=== PATIENT | male | born 1955 | race Caucasian/White ===

== ENCOUNTER 2020-10-08 05:40 | Inpatient (IN) ==
[2020-10-01 11:11] LABS: Basophils # 0.1 10*3/uL (0.0-0.2); Basophils % 0.7 % (0.0-0.8); Eosinophils # 0.3 10*3/uL (0.0-0.87); Eosinophils % 3.3 % (0.00-10.9); Hematocrit 38.1 VOL% (42.0-52.0); Hemoglobin 12.6 GM/DL (14.0-18.0); Immature Granulocytes % 0.3 %; Immature Granulocytes Absolute 0.03 #; Lymphocytes # 1.6 10*3/uL (1.4-4.0); Lymphocytes % 18.6 % (21.2-54.2); Mean Corpuscular HGB Conc 33.1 GM/DL (32-36); Mean Corpuscular Volume 93.2 FL (87-102); Mean Platelet Volume 10.1 FL (9.6-12.0); Monocytes % 7.3 % (1.7-12.7); Neutrophils % 69.8 % (38.7-73.9); Platelet Count 174 T/CUMM (130-400); Red Blood Count 4.09 MC/CUMM (3.8-5.5); Red Cell Distribution Width 12.7 % (9.3-17.3); White Blood Count 8.8 T/CUMM (4-12)
[2020-10-01 11:58] LABS: Albumin 4.1 G/DL (3.4-5.0); Bilirubin,Total 1.4 MG/DL (0.2-1.0); Calcium 8.9 MG/DL (8.5-10.1); Osmolality,Calculated 293.2 MOS/KG (273-304); Potassium 5.8 MMOL/L (3.5-5.1); Total Protein 6.7 G/DL (6.4-8.2)
[2020-10-08] MEDS ORDERED: GENTAMICIN INJ 160 MG in SODIUM CHLORIDE 0.9% 100 ML IV ONE (06:30)
[2020-10-08] MEDS ORDERED: GENTAMICIN 80 MG/2 ML VIAL ONE (06:53)
[2020-10-08] MEDS ORDERED: LACTATED RINGERS 1,000 ML IV SCH (07:00)
[2020-10-08] MEDS ORDERED: FAMOTIDINE 20 MG TABLET PO ONE (07:21)
[2020-10-08] MEDS ORDERED: DIAZEPAM 5 MG TABLET PO ONE (07:21)
[2020-10-08] MEDS ORDERED: MIDAZOLAM 2 MG/2 ML VIAL ONE (07:44)
[2020-10-08] MEDS ORDERED: fentaNYL 100 MCG/2 ML VIAL ONE ×2 (07:45→08:35)
[2020-10-08] MEDS ORDERED: ePHEDrine 50 MG/ML VIAL ONE (07:49)
[2020-10-08] MEDS ORDERED: propofoL 200 MG/20 ML VIAL IV ONE (08:00)
[2020-10-08] MEDS ORDERED: SEVOFLURANE 1 UNIT/15 MINUTE INH ONE (08:00)
[2020-10-08] MEDS ORDERED: ONDANSETRON 4 MG/2 ML VIAL ONE (08:00)
[2020-10-08] MEDS ORDERED: LIDOCAINE 2% 5 ML VIAL ONE (08:00)
[2020-10-08] MEDS ORDERED: GLYCOPYRROLATE 0.4 MG/2 ML VIAL ONE (08:34)
[2020-10-08] MEDS ORDERED: ACETAMINOPHEN 325 MG TABLET PO PRN (08:40)
[2020-10-08] MEDS ORDERED: PROMETHAZINE 25 MG/1 ML VIAL IM PRN (08:40)
[2020-10-08] MEDS ORDERED: ONDANSETRON 4 MG/2 ML VIAL IV PRN ×2 (08:40→09:18)
[2020-10-08] MEDS ORDERED: HYDROmorphone 2 MG/1 ML VIAL IV PRN ×2 (08:40→09:18)
[2020-10-08] MEDS ORDERED: SIMETHICONE CHEW 80 MG TABLET PO PRN (08:46)
[2020-10-08 10:53] LABS: Basophils # 0.1 10*3/uL (0.0-0.2); Basophils % 0.6 % (0.0-0.8); Eosinophils # 0.3 10*3/uL (0.0-0.87); Eosinophils % 3.2 % (0.00-10.9); Hemoglobin 11.8 GM/DL (14.0-18.0); Immature Granulocytes % 0.5 %; Immature Granulocytes Absolute 0.04 #; Lymphocytes # 1.5 10*3/uL (1.4-4.0); Lymphocytes % 19.4 % (21.2-54.2); Mean Corpuscular HGB Conc 32.8 GM/DL (32-36); Mean Corpuscular Volume 93.5 FL (87-102); Mean Platelet Volume 9.8 FL (9.6-12.0); Monocytes % 7.3 % (1.7-12.7); Platelet Count 136 T/CUMM (130-400); Red Blood Count 3.85 MC/CUMM (3.8-5.5); Red Cell Distribution Width 12.7 % (9.3-17.3); White Blood Count 7.8 T/CUMM (4-12)
[2020-10-08 11:19] LABS: Calcium 8.8 MG/DL (8.5-10.1); Osmolality,Calculated 292.5 MOS/KG (273-304); Potassium 5.5 MMOL/L (3.5-5.1)
[2020-10-08] MEDS ORDERED: DEXTROSE 50% 25 GM/50 ML VIAL IV PRN (11:25)
[2020-10-08] MEDS ORDERED: GLUCAGON 1 MG VIAL IM PRN (11:25)
[2020-10-08] MEDS: INSULIN LISPRO 100 UNIT/ML SUBCUT SCH ×3 (12:09→20:17)
[2020-10-08] MEDS: amLODIPine 5 MG TABLET PO SCH (12:22)
[2020-10-08] MEDS: SERTRALINE 50 MG TABLET PO SCH (20:26)
[2020-10-08] MEDS: carvediloL 3.125 MG TABLET PO SCH (20:26)
[2020-10-08] MEDS: ROSUVASTATIN 20 MG TABLET PO SCH (20:26)
[2020-10-09] MEDS: oxyCODONE/ACETAMINOPHEN 5-325 MG TABLET PO PRN (00:34)
[2020-10-09 06:52] LABS: Basophils % 0.4 % (0.0-0.8); Eosinophils # 0.4 10*3/uL (0.0-0.87); Eosinophils % 3.4 % (0.00-10.9); Hematocrit 33.3 VOL% (42.0-52.0); Hemoglobin 11.4 GM/DL (14.0-18.0); Immature Granulocytes % 0.5 %; Immature Granulocytes Absolute 0.05 #; Lymphocytes # 1.2 10*3/uL (1.4-4.0); Lymphocytes % 10.5 % (21.2-54.2); Mean Corpuscular HGB Conc 34.2 GM/DL (32-36); Mean Platelet Volume 9.8 FL (9.6-12.0); Monocytes % 10.2 % (1.7-12.7); Platelet Count 133 T/CUMM (130-400); Red Blood Count 3.66 MC/CUMM (3.8-5.5); Red Cell Distribution Width 12.6 % (9.3-17.3); White Blood Count 11.1 T/CUMM (4-12)
[2020-10-09 07:09] LABS: Calcium 8.9 MG/DL (8.5-10.1); Potassium 4.6 MMOL/L (3.5-5.1); Risk Ratio 3.16; VLDL CHOLESTEROL 29.4 MG/DL
[2020-10-09] MEDS ORDERED: LOSARTAN/HCTZ 50-12.5 MG TABLET PO SCH (09:00)
[2020-10-09] MEDS: GLIMEPIRIDE 2 MG TABLET PO SCH (09:00)
[2020-10-09] MEDS: amLODIPine 5 MG TABLET PO SCH (09:00)
[2020-10-09] MEDS: MULTIVITAMIN (CENTRUM) TABLET PO SCH (09:01)
[2020-10-09] MEDS: INSULIN LISPRO 100 UNIT/ML SUBCUT SCH ×4 (09:01→21:00)
[2020-10-09] MEDS: CIPROFLOXACIN 500 MG TABLET PO SCH ×2 (09:01→21:00)
[2020-10-09] MEDS: ISOSORBIDE MONONITRATE 30 MG TABLET PO SCH (09:01)
[2020-10-09] MEDS: SERTRALINE 50 MG TABLET PO SCH ×2 (09:03→21:00)
[2020-10-09] MEDS ORDERED: OXYBUTYNIN 5 MG TABLET PO PRN (14:00)
[2020-10-09 14:01] LABS: Troponin I < 0.015 NG/ML (0.00-0.045)
[2020-10-09] MEDS ORDERED: ASPIRIN EC 81 MG TABLET PO SCH (21:00)
[2020-10-09] MEDS: ROSUVASTATIN 20 MG TABLET PO SCH (21:00)
[2020-10-09] MEDS: carvediloL 3.125 MG TABLET PO SCH (21:00)
[2020-10-10] MEDS: oxyCODONE/ACETAMINOPHEN 5-325 MG TABLET PO PRN (00:05)
[2020-10-10 08:11] LABS: Calcium 9.2 MG/DL (8.5-10.1); Osmolality,Calculated 289.7 MOS/KG (273-304); Potassium 4.6 MMOL/L (3.5-5.1)
[2020-10-10] MEDS: GLIMEPIRIDE 2 MG TABLET PO SCH (08:40)
[2020-10-10] MEDS: amLODIPine 5 MG TABLET PO SCH (08:41)
[2020-10-10] MEDS: SERTRALINE 50 MG TABLET PO SCH (08:41)
[2020-10-10] MEDS: MULTIVITAMIN (CENTRUM) TABLET PO SCH (08:41)
[2020-10-10] MEDS: CIPROFLOXACIN 500 MG TABLET PO SCH (08:41)
[2020-10-10] MEDS: ISOSORBIDE MONONITRATE 30 MG TABLET PO SCH (08:41)
[2020-10-10] MEDS: INSULIN LISPRO 100 UNIT/ML SUBCUT SCH (09:25)
[2020-10-10 12:37] VITALS: BP 120/66
== END 2020-10-10 12:17 | disposition home or self-care (01) | DRG 713 ==
LOC: N.OR 05:40 → N.SDSINP 06:01 → N.4E 10:14
PROVIDERS: ADMIT Surgery; ATTEND Surgery

== ENCOUNTER 2022-07-03 19:15 | Inpatient (IN) ==
[2022-07-03] MEDS ORDERED: ASPIRIN CHEW 81 MG TABLET PO STA (19:58)
[2022-07-03 20:21] LABS: Basophils % 0.4 % (0.0-0.8); Eosinophils # 0.2 10*3/uL (0.0-0.87); Eosinophils % 1.6 % (0.00-10.9); Hemoglobin 6.9 GM/DL (14.0-18.0); Immature Granulocytes % 0.4 %; Immature Granulocytes Absolute 0.04 #; Lymphocytes # 1.7 10*3/uL (1.4-4.0); Mean Corpuscular HGB Conc 31.4 GM/DL (32-36); Mean Corpuscular Volume 93.2 FL (87-102); Mean Platelet Volume 9.6 FL (9.6-12.0); Monocytes # 0.8 10*3/uL (0.11-0.8); Monocytes % 8.7 % (1.7-12.7); Neutrophils % 69.9 % (38.7-73.9); Platelet Count 229 T/CUMM (130-400); Red Blood Count 2.36 MC/CUMM (3.8-5.5); Red Cell Distribution Width 13.6 % (9.3-17.3); White Blood Count 9.2 T/CUMM (4-12)
[2022-07-03 20:44] LABS: Albumin 3.2 G/DL (3.4-5.0); Bilirubin,Total 0.5 MG/DL (0.20-1.00); Calcium 8.8 MG/DL (8.5-10.1); Osmolality,Calculated 290.1 MOS/KG (273-304); Potassium 5.2 MMOL/L (3.5-5.1); Total Protein 6.4 G/DL (6.4-8.2)
[2022-07-03 20:55] LABS: PT Patient Result 10.9 SECS (10.1-12.1); Partial Thromboplastin Time 24.4 SECS (23.7-32.9)
[2022-07-03] MEDS ORDERED: SODIUM CHLORIDE 0.9% 500 ML IV STA (21:14)
[2022-07-03] MEDS ORDERED: SODIUM CHLORIDE 0.9% 1,000 ML IV PRN (21:30)
[2022-07-03] MEDS ORDERED: ONDANSETRON 4 MG/2 ML VIAL IV PRN (21:35)
[2022-07-03] MEDS ORDERED: SIMETHICONE CHEW 125 MG TABLET PO PRN (21:35)
[2022-07-03] MEDS ORDERED: DEXTROSE 10% 250 ML BAG IV PRN (21:46)
[2022-07-03] MEDS ORDERED: GLUCAGON 1 MG VIAL IM PRN (21:46)
[2022-07-04] MEDS: amLODIPine 5 MG TABLET PO SCH ×2 (00:15→09:54)
[2022-07-04] MEDS: ACETAMINOPHEN 325 MG TABLET PO PRN ×2 (00:15→21:12)
[2022-07-04] MEDS: ISOSORBIDE MONONITRATE 30 MG TABLET PO SCH ×2 (00:15→09:54)
[2022-07-04] MEDS: PANTOPRAZOLE 40 MG VIAL IV SCH ×3 (00:16→21:12)
[2022-07-04] MEDS: INSULIN REGULAR 100 UNIT/ML SUBCUT SCH ×4 (09:20→21:13)
[2022-07-04] MEDS: SODIUM CHLORIDE 0.45% 1,000 ML IV SCH ×3 (09:22→21:57)
[2022-07-04] MEDS: OXYBUTYNIN XL 10 MG TABLET PO SCH (09:54)
[2022-07-04] MEDS: SERTRALINE 100 MG TABLET PO SCH (09:54)
[2022-07-04 10:02] LABS: Basophils % 0.5 % (0.0-0.8); Eosinophils # 0.2 10*3/uL (0.0-0.87); Eosinophils % 2.6 % (0.00-10.9); Hematocrit 26.7 VOL% (42.0-52.0); Hemoglobin 8.8 GM/DL (14.0-18.0); Immature Granulocytes % 0.3 %; Immature Granulocytes Absolute 0.02 #; Lymphocytes # 1.4 10*3/uL (1.4-4.0); Lymphocytes % 17.7 % (21.2-54.2); Mean Corpuscular Volume 92.1 FL (87-102); Mean Platelet Volume 9.3 FL (9.6-12.0); Monocytes # 0.7 10*3/uL (0.11-0.8); Monocytes % 9.2 % (1.7-12.7); Neutrophils % 69.7 % (38.7-73.9); Platelet Count 203 T/CUMM (130-400); Red Cell Distribution Width 13.9 % (9.3-17.3); White Blood Count 7.8 T/CUMM (4-12)
[2022-07-04 10:32] LABS: Albumin 2.9 G/DL (3.4-5.0); Bilirubin,Total 0.9 MG/DL (0.20-1.00); Calcium 8.4 MG/DL (8.5-10.1); Osmolality,Calculated 288.3 MOS/KG (273-304); Potassium 4.9 MMOL/L (3.5-5.1); Total Protein 6.1 G/DL (6.4-8.2)
[2022-07-04] MEDS: hydrALAZINE 20 MG/1 ML VIAL IV PRN (17:44)
[2022-07-04] MEDS: ROSUVASTATIN 20 MG TABLET PO SCH (21:11)
[2022-07-04] MEDS: TERAZOSIN 1 MG CAPSULE PO SCH (21:11)
[2022-07-05 05:09] LABS: Basophils % 0.4 % (0.0-0.8); Eosinophils # 0.2 10*3/uL (0.0-0.87); Hematocrit 26.5 VOL% (42.0-52.0); Hemoglobin 8.6 GM/DL (14.0-18.0); Immature Granulocytes % 0.3 %; Immature Granulocytes Absolute 0.02 #; Lymphocytes # 1.5 10*3/uL (1.4-4.0); Lymphocytes % 21.3 % (21.2-54.2); Mean Corpuscular HGB Conc 32.5 GM/DL (32-36); Mean Corpuscular Volume 90.8 FL (87-102); Mean Platelet Volume 9.6 FL (9.6-12.0); Monocytes # 0.7 10*3/uL (0.11-0.8); Platelet Count 186 T/CUMM (130-400); Red Blood Count 2.92 MC/CUMM (3.8-5.5); Red Cell Distribution Width 13.7 % (9.3-17.3); White Blood Count 7.1 T/CUMM (4-12)
[2022-07-05 05:27] LABS: Calcium 8.5 MG/DL (8.5-10.1); Osmolality,Calculated 287.3 MOS/KG (273-304); Potassium 4.6 MMOL/L (3.5-5.1)
[2022-07-05] MEDS: SERTRALINE 100 MG TABLET PO SCH (09:15)
[2022-07-05] MEDS: amLODIPine 5 MG TABLET PO SCH (09:15)
[2022-07-05] MEDS: OXYBUTYNIN XL 10 MG TABLET PO SCH (09:15)
[2022-07-05] MEDS: ISOSORBIDE MONONITRATE 30 MG TABLET PO SCH (09:15)
[2022-07-05] MEDS: INSULIN REGULAR 100 UNIT/ML SUBCUT SCH ×4 (09:15→21:27)
[2022-07-05] MEDS: PANTOPRAZOLE 40 MG VIAL IV SCH ×2 (09:16→21:21)
[2022-07-05] MEDS: POLYETHYLENE GLYCOL POWDER 17 GM PACK PO SCH ×2 (11:08→21:20)
[2022-07-05] MEDS: ACETAMINOPHEN 325 MG TABLET PO PRN (11:10)
[2022-07-05] MEDS: hydrALAZINE 20 MG/1 ML VIAL IV PRN (12:51)
[2022-07-05] MEDS ORDERED: ZIPRASIDONE 20 MG/1 ML VIAL IM ONE (18:30)
[2022-07-05] MEDS: TERAZOSIN 1 MG CAPSULE PO SCH (21:20)
[2022-07-05] MEDS: ROSUVASTATIN 20 MG TABLET PO SCH (21:21)
[2022-07-06 05:49] LABS: Basophils % 0.4 % (0.0-0.8); Eosinophils # 0.1 10*3/uL (0.0-0.87); Eosinophils % 2.5 % (0.00-10.9); Hematocrit 25.7 VOL% (42.0-52.0); Hemoglobin 8.3 GM/DL (14.0-18.0); Immature Granulocytes % 0.2 %; Immature Granulocytes Absolute 0.01 #; Lymphocytes # 1.2 10*3/uL (1.4-4.0); Lymphocytes % 20.2 % (21.2-54.2); Mean Corpuscular HGB Conc 32.3 GM/DL (32-36); Mean Corpuscular Volume 92.4 FL (87-102); Mean Platelet Volume 9.5 FL (9.6-12.0); Monocytes # 0.7 10*3/uL (0.11-0.8); Neutrophils % 63.7 % (38.7-73.9); Platelet Count 158 T/CUMM (130-400); Red Blood Count 2.78 MC/CUMM (3.8-5.5); Red Cell Distribution Width 13.4 % (9.3-17.3); White Blood Count 5.7 T/CUMM (4-12)
[2022-07-06 06:08] LABS: Calcium 8.4 MG/DL (8.5-10.1); Osmolality,Calculated 291.8 MOS/KG (273-304); Potassium 3.8 MMOL/L (3.5-5.1)
[2022-07-06] MEDS: INSULIN REGULAR 100 UNIT/ML SUBCUT SCH ×4 (09:53→21:44)
[2022-07-06] MEDS: PANTOPRAZOLE 40 MG VIAL IV SCH ×2 (09:54→20:53)
[2022-07-06] MEDS: OXYBUTYNIN XL 10 MG TABLET PO SCH (09:54)
[2022-07-06] MEDS: amLODIPine 5 MG TABLET PO SCH (09:54)
[2022-07-06] MEDS: POLYETHYLENE GLYCOL POWDER 17 GM PACK PO SCH ×2 (09:54→20:51)
[2022-07-06] MEDS: SERTRALINE 100 MG TABLET PO SCH (09:54)
[2022-07-06] MEDS: ISOSORBIDE MONONITRATE 30 MG TABLET PO SCH (11:12)
[2022-07-06] MEDS: TERAZOSIN 1 MG CAPSULE PO SCH (20:53)
[2022-07-06] MEDS: ROSUVASTATIN 20 MG TABLET PO SCH (20:53)
[2022-07-06] MEDS: ACETAMINOPHEN 325 MG TABLET PO PRN (20:54)
[2022-07-07] MEDS: hydrALAZINE 20 MG/1 ML VIAL IV PRN (05:14)
[2022-07-07 05:29] LABS: Basophils % 0.4 % (0.0-0.8); Eosinophils # 0.2 10*3/uL (0.0-0.87); Eosinophils % 3.5 % (0.00-10.9); Hematocrit 26.4 VOL% (42.0-52.0); Hemoglobin 8.5 GM/DL (14.0-18.0); Immature Granulocytes % 0.4 %; Immature Granulocytes Absolute 0.02 #; Lymphocytes # 1.2 10*3/uL (1.4-4.0); Mean Corpuscular HGB Conc 32.2 GM/DL (32-36); Mean Corpuscular Volume 93.3 FL (87-102); Mean Platelet Volume 9.8 FL (9.6-12.0); Monocytes # 0.6 10*3/uL (0.11-0.8); Monocytes % 11.4 % (1.7-12.7); Neutrophils % 62.3 % (38.7-73.9); Platelet Count 149 T/CUMM (130-400); Red Blood Count 2.83 MC/CUMM (3.8-5.5); Red Cell Distribution Width 13.4 % (9.3-17.3); White Blood Count 5.4 T/CUMM (4-12)
[2022-07-07 05:50] LABS: Calcium 8.5 MG/DL (8.5-10.1); Osmolality,Calculated 284.1 MOS/KG (273-304); Potassium 3.7 MMOL/L (3.5-5.1)
[2022-07-07] MEDS ORDERED: NITROGLYCERIN SL 0.4 MG TABLET SL ONE (06:30)
[2022-07-07] MEDS: MORPHINE 2 MG/1 ML SYRINGE IV PRN (07:09)
[2022-07-07] MEDS: NITROGLYCERIN SL 0.4 MG TABLET SL PRN (07:09)
[2022-07-07 07:39] LABS: Arterial Base Excess iSTAT -4 MMOL/L (-2.5-2.5); Arterial Bicarbonate iSTAT 19.4 MMOL/L (20-26); Arterial O2 Saturation iSTAT 99 % (95-100); Arterial PCO2 iSTAT 29 MM HG (35-48); Arterial PO2 iSTAT 119 MM HG (80-95); Arterial Total CO2 iSTAT 20 MMO/L (23-27); Arterial pH iSTAT 7.436 (7.35-7.45)
[2022-07-07 07:40] LABS: Basophils % 0.2 % (0.0-0.8); Eosinophils # 0.2 10*3/uL (0.0-0.87); Hemoglobin 9.1 GM/DL (14.0-18.0); Immature Granulocytes % 0.3 %; Immature Granulocytes Absolute 0.03 #; Lymphocytes % 20.4 % (21.2-54.2); Mean Corpuscular HGB Conc 32.5 GM/DL (32-36); Mean Corpuscular Volume 91.2 FL (87-102); Mean Platelet Volume 9.3 FL (9.6-12.0); Monocytes # 0.8 10*3/uL (0.11-0.8); Monocytes % 8.2 % (1.7-12.7); Neutrophils % 68.9 % (38.7-73.9); Platelet Count 181 T/CUMM (130-400); Red Blood Count 3.07 MC/CUMM (3.8-5.5); Red Cell Distribution Width 13.6 % (9.3-17.3); White Blood Count 9.7 T/CUMM (4-12)
[2022-07-07] MEDS: SERTRALINE 100 MG TABLET PO SCH (08:21)
[2022-07-07] MEDS: ISOSORBIDE MONONITRATE 30 MG TABLET PO SCH (08:21)
[2022-07-07] MEDS: POLYETHYLENE GLYCOL POWDER 17 GM PACK PO SCH ×2 (08:21→22:23)
[2022-07-07] MEDS: amLODIPine 5 MG TABLET PO SCH (08:21)
[2022-07-07] MEDS: OXYBUTYNIN XL 10 MG TABLET PO SCH (08:21)
[2022-07-07] MEDS: INSULIN REGULAR 100 UNIT/ML SUBCUT SCH ×4 (08:21→22:21)
[2022-07-07] MEDS: FERRIC GLUCONATE COMPLEX 125 MG in SODIUM CHLORIDE 0.9% 100 ML IV SCH (10:22)
[2022-07-07] MEDS: PANTOPRAZOLE 40 MG VIAL IV SCH ×2 (10:28→22:30)
[2022-07-07] MEDS: LACTATED RINGERS 1,000 ML IV SCH ×2 (13:09→14:00)
[2022-07-07] MEDS ORDERED: ETOMIDATE 20 MG/10 ML VIAL IV ONE (14:05)
[2022-07-07] MEDS ORDERED: LIDOCAINE 2% 5 ML VIAL ONE (14:05)
[2022-07-07] MEDS ORDERED: propofoL 200 MG/20 ML VIAL IV ONE (14:05)
[2022-07-07] MEDS: ROSUVASTATIN 20 MG TABLET PO SCH (22:23)
[2022-07-07] MEDS: TERAZOSIN 1 MG CAPSULE PO SCH (22:23)
[2022-07-08 05:20] LABS: Basophils % 0.3 % (0.0-0.8); Eosinophils # 0.2 10*3/uL (0.0-0.87); Eosinophils % 2.6 % (0.00-10.9); Hematocrit 25.3 VOL% (42.0-52.0); Immature Granulocytes % 0.5 %; Immature Granulocytes Absolute 0.03 #; Lymphocytes % 15.5 % (21.2-54.2); Mean Corpuscular HGB Conc 31.6 GM/DL (32-36); Mean Corpuscular Volume 93.4 FL (87-102); Mean Platelet Volume 9.9 FL (9.6-12.0); Monocytes # 0.8 10*3/uL (0.11-0.8); Monocytes % 12.2 % (1.7-12.7); Neutrophils % 68.9 % (38.7-73.9); Platelet Count 146 T/CUMM (130-400); Red Blood Count 2.71 MC/CUMM (3.8-5.5); Red Cell Distribution Width 13.7 % (9.3-17.3); White Blood Count 6.5 T/CUMM (4-12)
[2022-07-08 05:51] LABS: Calcium 8.5 MG/DL (8.5-10.1); Osmolality,Calculated 283.1 MOS/KG (273-304); Potassium 3.8 MMOL/L (3.5-5.1)
[2022-07-08] MEDS: INSULIN REGULAR 100 UNIT/ML SUBCUT SCH ×4 (11:05→20:54)
[2022-07-08] MEDS: OXYBUTYNIN XL 10 MG TABLET PO SCH (16:34)
[2022-07-08] MEDS: POLYETHYLENE GLYCOL POWDER 17 GM PACK PO SCH ×3 (16:34→20:56)
[2022-07-08] MEDS: amLODIPine 5 MG TABLET PO SCH (16:35)
[2022-07-08] MEDS: ISOSORBIDE MONONITRATE 30 MG TABLET PO SCH (16:35)
[2022-07-08] MEDS: SERTRALINE 100 MG TABLET PO SCH (16:35)
[2022-07-08] MEDS: PANTOPRAZOLE 40 MG VIAL IV SCH ×2 (16:36→20:55)
[2022-07-08] MEDS: FERRIC GLUCONATE COMPLEX 125 MG in SODIUM CHLORIDE 0.9% 100 ML IV SCH (16:36)
[2022-07-08] MEDS: TERAZOSIN 1 MG CAPSULE PO SCH (20:55)
[2022-07-08] MEDS: ROSUVASTATIN 20 MG TABLET PO SCH (20:55)
[2022-07-08] MEDS: LACTATED RINGERS 1,000 ML IV SCH (21:41)
[2022-07-09 05:51] LABS: Basophils % 0.3 % (0.0-0.8); Eosinophils # 0.2 10*3/uL (0.0-0.87); Hematocrit 25.7 VOL% (42.0-52.0); Immature Granulocytes % 0.3 %; Immature Granulocytes Absolute 0.02 #; Lymphocytes # 1.2 10*3/uL (1.4-4.0); Lymphocytes % 18.1 % (21.2-54.2); Mean Corpuscular HGB Conc 31.1 GM/DL (32-36); Mean Corpuscular Volume 93.8 FL (87-102); Mean Platelet Volume 10.1 FL (9.6-12.0); Monocytes # 0.7 10*3/uL (0.11-0.8); Neutrophils % 68.3 % (38.7-73.9); Platelet Count 149 T/CUMM (130-400); Red Blood Count 2.74 MC/CUMM (3.8-5.5); Red Cell Distribution Width 13.5 % (9.3-17.3); White Blood Count 6.6 T/CUMM (4-12)
[2022-07-09 06:07] LABS: Calcium 8.6 MG/DL (8.5-10.1); Osmolality,Calculated 285.3 MOS/KG (273-304); Potassium 3.9 MMOL/L (3.5-5.1)
[2022-07-09] MEDS: INSULIN REGULAR 100 UNIT/ML SUBCUT SCH ×4 (10:44→21:09)
[2022-07-09] MEDS: NEBIVOLOL 10 MG TABLET PO SCH (11:31)
[2022-07-09] MEDS: amLODIPine 5 MG TABLET PO SCH (11:31)
[2022-07-09] MEDS: SERTRALINE 100 MG TABLET PO SCH (11:31)
[2022-07-09] MEDS: ISOSORBIDE MONONITRATE 30 MG TABLET PO SCH (11:31)
[2022-07-09] MEDS: OXYBUTYNIN XL 10 MG TABLET PO SCH (11:31)
[2022-07-09] MEDS: FERRIC GLUCONATE COMPLEX 125 MG in SODIUM CHLORIDE 0.9% 100 ML IV SCH (11:32)
[2022-07-09] MEDS: PANTOPRAZOLE 40 MG VIAL IV SCH ×2 (11:32→21:00)
[2022-07-09] MEDS: POLYETHYLENE GLYCOL POWDER 17 GM PACK PO SCH ×3 (11:50→20:56)
[2022-07-09] MEDS: ACETAMINOPHEN 325 MG TABLET PO PRN (11:58)
[2022-07-09] MEDS: MORPHINE 2 MG/1 ML SYRINGE IV PRN (12:04)
[2022-07-09] MEDS: NITROGLYCERIN SL 0.4 MG TABLET SL PRN ×3 (12:21→12:42)
[2022-07-09] MEDS: LACTATED RINGERS 1,000 ML IV SCH (19:53)
[2022-07-09] MEDS: TERAZOSIN 1 MG CAPSULE PO SCH (20:56)
[2022-07-09] MEDS: ROSUVASTATIN 20 MG TABLET PO SCH (20:57)
[2022-07-10 05:09] LABS: Basophils % 0.4 % (0.0-0.8); Eosinophils # 0.2 10*3/uL (0.0-0.87); Eosinophils % 3.2 % (0.00-10.9); Hematocrit 23.4 VOL% (42.0-52.0); Hemoglobin 7.5 GM/DL (14.0-18.0); Immature Granulocytes % 0.4 %; Immature Granulocytes Absolute 0.02 #; Lymphocytes # 0.8 10*3/uL (1.4-4.0); Mean Corpuscular HGB Conc 32.1 GM/DL (32-36); Monocytes # 0.8 10*3/uL (0.11-0.8); Monocytes % 13.6 % (1.7-12.7); Neutrophils % 67.4 % (38.7-73.9); Platelet Count 124 T/CUMM (130-400); Red Blood Count 2.49 MC/CUMM (3.8-5.5); Red Cell Distribution Width 13.3 % (9.3-17.3); White Blood Count 5.6 T/CUMM (4-12)
[2022-07-10 05:20] LABS: Calcium 8.3 MG/DL (8.5-10.1); Potassium 4.1 MMOL/L (3.5-5.1)
[2022-07-10 05:36] LABS: Anisocytosis 2+; Platelet Estimate Adequate
[2022-07-10 08:10] VITALS: BP 167/61
[2022-07-10] MEDS: INSULIN REGULAR 100 UNIT/ML SUBCUT SCH (08:10)
[2022-07-10] MEDS: FERRIC GLUCONATE COMPLEX 125 MG in SODIUM CHLORIDE 0.9% 100 ML IV SCH (09:54)
[2022-07-10] MEDS: POLYETHYLENE GLYCOL POWDER 17 GM PACK PO SCH ×2 (09:55)
[2022-07-10] MEDS: PANTOPRAZOLE 40 MG VIAL IV SCH (09:55)
[2022-07-10] MEDS: OXYBUTYNIN XL 10 MG TABLET PO SCH (09:55)
[2022-07-10] MEDS: amLODIPine 5 MG TABLET PO SCH (09:55)
[2022-07-10] MEDS: NEBIVOLOL 10 MG TABLET PO SCH (09:56)
[2022-07-10] MEDS: SERTRALINE 100 MG TABLET PO SCH (09:56)
[2022-07-10] MEDS: ISOSORBIDE MONONITRATE 30 MG TABLET PO SCH (09:56)
== END 2022-07-10 10:45 | disposition home or self-care (01) | DRG 378 ==
LOC: N.ED 19:15 → SUATTDRO 21:35 → N.EDINP 21:35 → N.2E 22:57 → N.TELES 07-07 08:34
PROVIDERS: ADMIT Hospitalist; ATTEND Internal Medicine Geriatric Medicine